=== PATIENT | female | born 1980 | race Two or more races ===

== ENCOUNTER 2016-09-02 00:07 | Emergency (ER) | payer SELFPAY ==
[~2016-09-02] VITALS: Ht 170.2 cm; Wt 90.9 kg
[2016-09-02 00:10] VITALS: BP 167/93
== END 2016-09-02 01:04 | disposition left against medical advice (07) ==
LOC: EMS 00:08
DX: R00.2 Palpitations (principal); I10 Essential (primary) hypertension; F17.210 Nicotine dependence, cigarettes, uncomplicated; Z53.21 Procedure and treatment not carried out due to patient leaving prior to being seen by health care provider